=== PATIENT | female | born 1985 | race American Indian/Alaskan Native ===

== ENCOUNTER 2017-12-18 10:01 | Emergency (ER) | payer SELFPAY ==
[2017-12-18] MEDS ORDERED: TYLENOL PO ONE (13:14)
[2017-12-18 13:45] LABS: HCG Qualitative,Urine Negative (Negative)
[2017-12-18 13:49] LABS: Bacteria,Urine 1+ /HPF (Negative); Bilirubin,Urine NEG (Negative); Blood,Urine MOD (Negative); Color,Urine Yellow (Yellow); Mucus,Urine FEW /HPF; Nitrite,Urine NEG (Negative); Protein,Urine <15 mg/dL mg/dL (Negative)
--- NOTE | 2017-12-18 14:02 | Emergency Department Report ---
Chief Complaint: Urogenital-Female Stated Complaint: UTI Time Seen by Provider: 12/18/17 13:12 - HPI History of Present Illness: The patient is 32-year-old female presents for evaluation of abdominal pain and dysuria. The patient reports abdominal pain for the past 2 days, crampy in quality, worsened with urination, moderate in severity, The patient denies fever , trauma to the abdomen, diarrhea, blood in the stool, dark tarry stool, hematuria, flank pain, genital discharge, dyspareunia. - ROS Review of Systems: Constitutional: denies: fever ENT: denies: throat or neck pain Respiratory: denies: cough, shortness of breath Cardiovascular: denies: chest pain Endocrine: denies unexplained weight loss or gain Gastrointestinal: denies: abdominal pain, nausea Genitourinary: reports: dysuria Musculoskeletal: denies: leg swelling - Exam Vital Signs: Vital Signs 12/18/17 11:41 Temperature 98.3 F Pulse Rate 81 Respiratory 16 Rate Blood Pressure 130/70 O2 Sat by Pulse 99 Oximetry Physical Exam: General: well-nourished, well-developed, no acute distress Head: Normocephalic, atraumatic Eyes: normal sclera ENT: Mucous membranes are pink and moist Neck: trachea midline, neck supple, No neck stiffness, no cervical adenopathy Respiratory: Breath sounds equal bilaterally, no wheezing, rales, or rhonchi Cardio: S1 and S2 present, no murmurs, rubs, gallops, capillary refill is brisk Abdomen: Normoactive bowel sounds, soft abdomen, epigastric and superior tends to palpation present, no rigidity, no guarding or rebound tenderness Musc: No pitting edema Skin: No rash Neuro: no facial drooping, normal speech Psych: Normal affect MSE screening note: Focused history and physical exam performed. Due to findings the following was ordered: The patient was seen and examined by myself. On initial evaluation, the patient was found to be in no distress. Evaluation orders were placed to rule out UTI, related process, pancreatitis, and hepatitis. ED Disposition for MSE Condition: Stable Referrals: PRIMARY CARE, [Primary Care Provider] - 3-5 Days
--- NOTE | 2017-12-18 14:28 | Emergency Department Report ---
ED Female HPI - General Chief complaint: Urogenital-Female Stated complaint: UTI Time Seen by Provider: 12/18/17 13:12 Source: patient Mode of arrival: Ambulatory Limitations: No Limitations - History of Present Illness Initial comments: 32-year-old -[place] female comes in with complaint of dysuria for 3 days. Patient reports that it hurts to go to the bathroom before and after. She does admit that her urine is cloudy has a little smell 2. Patient also like to be treated for bacterial vaginosis she says she has some vaginal discharge and has a foul odor. Patient has no pain at this time she currently takes no medication she does have an allergy to minocycline. Patient does have a past medical history of anemia but is not being followed by anyone. MD Complaint: dysuria -: days(s) (3) Location: suprapubic Severity scale (0 -10): 0 - Related Data Home Medications Medication Instructions Recorded Confirmed Last Taken Ferrous Sulfate [Feosol] 325 mg PO BID 02/15/15 02/15/15 02/07/15 Previous Rx's Medication Instructions Recorded Last Taken Type Ibuprofen [Motrin] 800 mg PO Q8H PRN #30 tablet 02/15/15 Unknown Rx traMADol [Ultram] 50 mg PO Q6HR PRN #14 tablet 02/15/15 Unknown Rx Amoxicillin/K Clav Tab [Augmentin 1 tab PO BID #14 tablet 02/16/15 Unknown Rx 875MG] Nitrofurantoin Monohyd/M-Cryst 100 mg PO BID #20 capsule 12/18/17 Unknown Rx [Macrobid 100 mg Capsule] metroNIDAZOLE [Flagyl] 500 mg PO Q12HR #14 tab 12/18/17 Unknown Rx Allergies Allergy/AdvReac Type Severity Reaction Status Date / Time minocycline Allergy Hives Verified 02/15/15 22:14 ED Review of Systems ROS: Stated complaint: UTI Other details as noted in HPI Constitutional: denies: chills, fever Eyes: denies: eye pain, eye discharge, vision change ENT: denies: ear pain, throat pain Respiratory: denies: cough, shortness of breath, wheezing Cardiovascular: denies: chest pain, palpitations Endocrine: no symptoms reported Gastrointestinal: denies: abdominal pain, nausea, diarrhea Genitourinary: urgency, dysuria, frequency, discharge Musculoskeletal: denies: back pain, joint swelling, arthralgia Skin: denies: rash, lesions Neurological: denies: headache, weakness, paresthesias Psychiatric: denies: anxiety, depression Hematological/Lymphatic: denies: easy bleeding, easy bruising ED Past Medical Hx - Past Medical History Previous Medical History?: Yes Additional medical history: anemia - Surgical History Past Surgical History?: No - Social History Smoking Status: Never Smoker Substance Use Type: Alcohol - Medications Home Medications: Home Medications Medication Instructions Recorded Confirmed Last Taken Type Ferrous Sulfate [Feosol] 325 mg PO BID 02/15/15 02/15/15 02/07/15 History Ibuprofen [Motrin] 800 mg PO Q8H PRN #30 tablet 02/15/15 Unknown Rx traMADol [Ultram] 50 mg PO Q6HR PRN #14 tablet 02/15/15 Unknown Rx Amoxicillin/K Clav Tab [Augmentin 1 tab PO BID #14 tablet 02/16/15 Unknown Rx 875MG] Nitrofurantoin Monohyd/M-Cryst 100 mg PO BID #20 capsule 12/18/17 Unknown Rx [Macrobid 100 mg Capsule] metroNIDAZOLE [Flagyl] 500 mg PO Q12HR #14 tab 12/18/17 Unknown Rx ED Physical Exam - General Limitations: No Limitations General appearance: alert, in no apparent distress - Head Head exam: Present: atraumatic, normocephalic - Eye Eye exam: Present: normal appearance - GI/Abdominal GI/Abdominal exam: Present: soft, normal bowel sounds. Absent: distended, tenderness - Extremities Exam Extremities exam: Present: normal inspection - Neurological Exam Neurological exam: Present: alert, oriented X3 - Psychiatric Psychiatric exam: Present: normal affect, normal mood ED Course Vital Signs 12/18/17 11:41 Temperature 98.3 F Pulse Rate 81 Respiratory 16 Rate Blood Pressure 130/70 O2 Sat by Pulse 99 Oximetry ED Medical Decision Making - Medical Decision Making Patient has been evaluated by this provider fast track. Urinalysis is positive for urinary tract infection. Discussed the patient was treated for bacterial vaginosis she is aware that she cannot drink alcohol with taken the Flagyl. Also discussed the patient it is very important for her to complete all antibiotics. She can take Tylenol or Motrin for any pain. Discussed with patient that she must increase her fluids. Patient verbalized understanding Critical care attestation.: If time is entered above; I have spent that time in minutes in the direct care of this critically ill patient, excluding procedure time. ED Disposition Clinical Impression: UTI (urinary tract infection) Qualifiers: Urinary tract infection type: site unspecified Hematuria presence: with hematuria Qualified Code(s): N39.0 - Urinary tract infection, site not specified ; R31.9 - Hematuria, unspecified; R31.9 - Hematuria, unspecified Disposition: - TO HOME OR SELFCARE Is pt being admited?: No Does the pt Need Aspirin: No Condition: Stable Instructions: Dysuria (ED), Urinary Tract Infection in Women (ED) Additional Instructions: Please complete antibiotics as prescribed. Please increase clear fluid intake. Please do not drink any alcohol while taking the Flagyl and up to 72 hours after. Follow-up with your primary care provider I will list one below. Prescriptions: metroNIDAZOLE [Flagyl] 500 mg PO Q12HR #14 tab Nitrofurantoin Monohyd/M-Cryst [Macrobid 100 mg Capsule] 100 mg PO BID #20 capsule Referrals: PRIMARY CARE, [Primary Care Provider] - 3-5 Days Forms: Work/School Release Form(ED), Accompanied Note
[2017-12-18 14:47] VITALS: BP 128/78
== END 2017-12-18 14:45 | disposition home or self-care (01) ==
LOC: ED 10:01
DX: N39.0 Urinary tract infection, site not specified (principal); Z86.2 Personal history of diseases of the blood and blood-forming organs and certain disorders involving the immune mechanism
CPT/HCPCS: 81001; 81025; 87086; 99283